=== PATIENT | male | born 1960 | race Caucasian/White ===

== ENCOUNTER 2017-06-12 21:15 | Inpatient (IN) | payer OTHER ==
[~2017-06-12] VITALS: Ht 172.7 cm; Wt 83.0 kg
[2017-06-12] MEDS ORDERED: SODIUM CHLORIDE 0.9% 1,000 ML IV ONE (23:13)
[2017-06-12 23:40] LABS: HEMATOCRIT. 39.7 % (42.0-52.0); HEMOGLOBIN. 13.4 g/dL (14.0-18.0); MEAN CORPUSCULAR HEMOGLOBIN 31.2 pg (28.0-32.0); MEAN CORPUSCULAR VOLUME 92.1 fL (80.0-94.0); MEAN PLATELET VOLUME 8.5 fl (7.4-10.4); PLATELET 228 x1000/uL (130-400); RED BLOOD CELL COUNT 4.31 mill/uL (4.7-6.1); RED CELL DISTRIBUTION WIDTH 13.6 % (11.6-14.6)
[2017-06-12 23:44] LABS: D-DIMER 0.19 mg/L FEU (<0.50); PARTIAL THROMBOPLASTIN TIME 23.4 sec (24.0-34.0); PROTHROMBIN TIME 10.8 sec
[2017-06-12 23:49] LABS: CARBON DIOXIDE 29 mEq/L (21-32); CHLORIDE 105 mEq/L (98-107); TROPONIN I < 0.02 ng/mL (0.00-0.04)
[2017-06-13 03:48] LABS: PLATELET ESTIMATE NORMAL
[2017-06-13 08:30] VITALS: BP 104/60
[2017-06-13] MEDS ORDERED: LORAZEPAM 2MG/ML CPJ IV PRN (09:15)
[2017-06-13] MEDS ORDERED: ACETAMINOPHEN 650MG SUPP PR PRN (09:15)
[2017-06-13] MEDS ORDERED: MAGNESIUM/ALUMINUM HYDROXIDE/SIMETHICONE 30ML UDC PO PRN (09:15)
[2017-06-13] MEDS ORDERED: DIPHENHYDRAMINE 50MG/ML VIAL IV PRN (09:15)
[2017-06-13] MEDS ORDERED: IPRATROPIUM/ALBUTEROL 0.5-3(2.5)MG/3ML NEB INH PRN (09:15)
[2017-06-13] MEDS ORDERED: DOCUSATE SODIUM 100MG CAPSULE PO PRN (09:15)
[2017-06-13] MEDS ORDERED: CLONIDINE 0.1MG TABLET PO PRN (09:15)
[2017-06-13] MEDS ORDERED: ONDANSETRON HCL 4MG/2ML VIAL IV PRN (09:15)
[2017-06-13] MEDS ORDERED: LORAZEPAM 0.5MG TABLET PO PRN (09:15)
[2017-06-13] MEDS ORDERED: ACETAMINOPHEN 325MG TABLET PO PRN (09:15)
[2017-06-13] MEDS ORDERED: HYDROMORPHONE HCL/PF 2MG/ML CPJ IV PRN (09:15)
[2017-06-13] MEDS ORDERED: ENOXAPARIN 40MG/0.4ML SYR SUBCUT SCH (10:00)
[2017-06-13 11:06] LABS: BASOPHILS % 0.4 % (0.0-2.0); HEMATOCRIT. 39.4 % (42.0-52.0); HEMOGLOBIN. 13.7 g/dL (14.0-18.0); LYMPHOCYTES % 13.3 % (20.0-50.0); MEAN CORPUSCULAR HEMOGLOBIN 31.8 pg (28.0-32.0); MEAN CORPUSCULAR VOLUME 91.6 fL (80.0-94.0); MEAN PLATELET VOLUME 8.6 fl (7.4-10.4); MONOCYTES % 11.4 % (2.0-8.0); NEUTROPHILS % 70.9 % (40.0-76.0); PLATELET 208 x1000/uL (130-400); RED CELL DISTRIBUTION WIDTH 13.7 % (11.6-14.6)
[2017-06-13 11:40] LABS: CARBON DIOXIDE 28 mEq/L (21-32); CHLORIDE 107 mEq/L (98-107); HDL CHOLESTEROL 58 mg/dL (40-59); LDL CHOLESTEROL 135 mg/dL (5-100)
[2017-06-13 12:00] VITALS: BP 122/96
[2017-06-13 12:42] VITALS: BP 104/60
[2017-06-13] MEDS ORDERED: SODIUM CHLORIDE 0.9% 10ML VIAL ONE (12:47)
[2017-06-13] MEDS ORDERED: IOHEXOL-350 100 ML BOTTLE ONE (12:47)
[2017-06-13] MEDS: SODIUM CHLORIDE 0.9% INJ 3ML FLUSH IVF SCH ×2 (13:36→21:26)
[2017-06-13] MEDS ORDERED: PINE BARK EXTRACT (13:40)
[2017-06-13] MEDS: IPRATROPIUM/ALBUTEROL 0.5-3(2.5)MG/3ML NEB HHN SCH ×3 (14:07→20:48)
[2017-06-13] MEDS ORDERED: POTASSIUM CHLORIDE 20MEQ TABLET SR PO SCH (14:30)
[2017-06-13] MEDS ORDERED: ATROPINE SULFATE 1MG/10ML SYR IV PRN (14:30)
[2017-06-13] MEDS ORDERED: MAGNESIUM 2 G PREMIX 50 ML IV SCH (14:30)
[2017-06-13 16:00] VITALS: BP 111/65
[2017-06-13 16:46] LABS: CREATINE KINASE MB FRACTION 0.6 ng/mL (0.5-3.6); TROPONIN I < 0.02 ng/mL (0.00-0.04)
[2017-06-13] MEDS: ASPIRIN 81MG EC TABLET PO SCH (17:36)
[2017-06-13 17:40] LABS: CLARITY URINE CLEAR (CLEAR); COLOR URINE YELLOW (YELLOW); GLUCOSE URINE NEGATIVE (NEGATIVE); KETONES URINE NEGATIVE (NEGATIVE); LEUKOCYTE ESTERASE URINE NEGATIVE (NEGATIVE); NITRITE URINE NEGATIVE (NEGATIVE); OCCULT BLOOD URINE NEGATIVE (NEGATIVE); PROTEIN URINE NEGATIVE (NEGATIVE); SPECIFIC GRAVITY URINE 1.017 (1.005-1.030); UROBILINOGEN URINE 0.2 E.U./dL (0.2-1.0)
[2017-06-13 18:00] LABS: *AMPHETAMINES SCREEN URINE NEGATIVE (NEGATIVE); *BARBITURATES SCREEN URINE NEGATIVE (NEGATIVE); *BENZODIAZEPINES SCREEN URINE NEGATIVE (NEGATIVE); *COCAINE SCREEN URINE NEGATIVE (NEGATIVE); CANNABINOID URINE SCREEN NEGATIVE (NEGATIVE); METHADONE URINE SCREEN NEGATIVE (NEGATIVE); OPIATES URINE SCREEN NEGATIVE (NEGATIVE); PHENCYCLIDINE URINE SCREEN NEGATIVE (NEGATIVE)
[2017-06-13 20:00] VITALS: BP_SYST 121; BP_SYST 99; BP_DIAS 65; BP_DIAS 72
[2017-06-13] MEDS: ATORVASTATIN CALCIUM 10MG TABLET PO SCH (21:25)
[2017-06-13 23:56] LABS: CREATINE KINASE MB FRACTION < 0.5 ng/mL (0.5-3.6); TROPONIN I < 0.02 ng/mL (0.00-0.04)
[2017-06-14] VITALS (10 sets, daily range): BP systolic 95–118; BP diastolic 49–95
[2017-06-14 05:45] LABS: BASOPHILS % 0.6 % (0.0-2.0); EOSINOPHILS % 6.5 % (0.0-5.0); HEMATOCRIT. 40.5 % (42.0-52.0); HEMOGLOBIN. 13.8 g/dL (14.0-18.0); LYMPHOCYTES % 14.1 % (20.0-50.0); MEAN CORPUSCULAR HEMOGLOBIN 31.5 pg (28.0-32.0); MEAN CORPUSCULAR VOLUME 92.7 fL (80.0-94.0); MEAN PLATELET VOLUME 9.1 fl (7.4-10.4); MONOCYTES % 11.5 % (2.0-8.0); NEUTROPHILS % 67.3 % (40.0-76.0); PLATELET 214 x1000/uL (130-400); RED BLOOD CELL COUNT 4.37 mill/uL (4.7-6.1); RED CELL DISTRIBUTION WIDTH 13.5 % (11.6-14.6)
[2017-06-14 06:35] LABS: CARBON DIOXIDE 30 mEq/L (21-32); CHLORIDE 106 mEq/L (98-107)
[2017-06-14 06:39] LABS: CREATINE KINASE 84 IU/L (39-308); CREATINE KINASE MB FRACTION < 0.5 ng/mL (0.5-3.6); TROPONIN I < 0.02 ng/mL (0.00-0.04)
[2017-06-14] MEDS: IPRATROPIUM/ALBUTEROL 0.5-3(2.5)MG/3ML NEB HHN SCH ×5 (08:00→20:38)
[2017-06-14] MEDS ORDERED: ACETAMINOPHEN 325MG TABLET PO PRN ×2 (08:45→12:15)
[2017-06-14] MEDS ORDERED: MORPHINE SULFATE 2 MG/ML CPJ (NOT FOR IM USE) IV PRN ×2 (08:45→12:15)
[2017-06-14] MEDS ORDERED: ONDANSETRON HCL 4MG/2ML VIAL IV PRN ×2 (08:45→12:15)
[2017-06-14] MEDS: ASPIRIN 81MG EC TABLET PO SCH (09:04)
[2017-06-14] MEDS ORDERED: ASPIRIN/SOD BICARB/CITRIC ACID 324MG TAB EFF ONE (11:40)
[2017-06-14] MEDS ORDERED: MIDAZOLAM HCL 2 MG/2 ML VIAL ONE (11:47)
[2017-06-14] MEDS ORDERED: FENTANYL CITRATE/PF 50MCG/ML 2ML VIAL ONE (11:47)
[2017-06-14] MEDS ORDERED: LIDOCAINE HCL 1% 20ML VIAL (Pyxis) INJ ONE (11:48)
[2017-06-14] MEDS ORDERED: IODIXANOL 320MG/ML 100 ML BOTTLE IV ONE (11:48)
[2017-06-14] MEDS ORDERED: HEPARIN SODIUM 1,000 UNIT/1ML VIAL IV ONE (11:52)
[2017-06-14] MEDS ORDERED: ATROPINE SULFATE 1MG/10ML SYR IV PRN (12:15)
[2017-06-14] MEDS ORDERED: SODIUM CHLORIDE 0.45% 1,000 ML IV ONE (12:15)
[2017-06-14] MEDS ORDERED: NITROGLYCERIN 50MCG/ML 10ML VIAL (CATH LAB) IV ONE (12:58)
[2017-06-14] MEDS ORDERED: NICARDIPINE 100MCG/ML 10ML VIAL (CATH LAB) IV ONE (12:58)
[2017-06-14] MEDS: SODIUM CHLORIDE 0.9% INJ 3ML FLUSH IVF SCH ×2 (15:12→21:58)
[2017-06-14] MEDS: DOCUSATE SODIUM 100MG CAPSULE PO SCH (19:31)
[2017-06-14] MEDS: ATORVASTATIN CALCIUM 10MG TABLET PO SCH (21:57)
[2017-06-15] VITALS: BP 99/68
[2017-06-15] MEDS: IPRATROPIUM/ALBUTEROL 0.5-3(2.5)MG/3ML NEB HHN SCH ×4 (00:49→13:42)
[2017-06-15 04:31] VITALS: BP 94/47
[2017-06-15 06:32] LABS: BASOPHILS % 0.7 % (0.0-2.0); EOSINOPHILS % 4.2 % (0.0-5.0); HEMATOCRIT. 38.2 % (42.0-52.0); HEMOGLOBIN. 13.2 g/dL (14.0-18.0); MEAN CORPUSCULAR HEMOGLOBIN 31.8 pg (28.0-32.0); MEAN CORPUSCULAR VOLUME 91.6 fL (80.0-94.0); MEAN PLATELET VOLUME 8.6 fl (7.4-10.4); MONOCYTES % 11.3 % (2.0-8.0); NEUTROPHILS % 72.8 % (40.0-76.0); PLATELET 197 x1000/uL (130-400); RED BLOOD CELL COUNT 4.17 mill/uL (4.7-6.1); RED CELL DISTRIBUTION WIDTH 13.6 % (11.6-14.6)
[2017-06-15] MEDS: SODIUM CHLORIDE 0.9% INJ 3ML FLUSH IVF SCH (06:47)
[2017-06-15 06:53] LABS: CARBON DIOXIDE 30 mEq/L (21-32); CHLORIDE 106 mEq/L (98-107)
[2017-06-15 08:00] VITALS: BP 98/55
[2017-06-15] MEDS: ASPIRIN 81MG EC TABLET PO SCH (08:58)
[2017-06-15] MEDS: DOCUSATE SODIUM 100MG CAPSULE PO SCH (08:58)
[2017-06-15 10:21] VITALS: BP 98/55
== END 2017-06-15 14:45 | disposition home or self-care (01) | DRG 287 ==
LOC: ER 22:25 → EDBEDREQ 23:21 → 6WST 06-13 05:02 → EDBEDREQ 06-13 05:17 → ENRESERV 06-13 06:53 → 6WST 06-13 14:06
PROVIDERS: ADMIT Internal Medicine Nephrology; ATTEND Internal Medicine Nephrology
PROC: B2111ZZ Fluoroscopy of Multiple Coronary Arteries using Low Osmolar Contrast (ICD-10-PCS; 2017-06-14)
PROC: B2151ZZ Fluoroscopy of Left Heart using Low Osmolar Contrast (ICD-10-PCS; 2017-06-14)
PROC: 4A023N7 Measurement of Cardiac Sampling and Pressure, Left Heart, Percutaneous Approach (ICD-10-PCS; principal; 2017-06-14 11:40)
DX: R00.1 Bradycardia, unspecified (principal); E46 Unspecified protein-calorie malnutrition; I95.89 Other hypotension; R07.9 Chest pain, unspecified; R55 Syncope and collapse; E78.5 Hyperlipidemia, unspecified; L40.9 Psoriasis, unspecified; E78.00 Pure hypercholesterolemia, unspecified; R32 Unspecified urinary incontinence; Z82.3 Family history of stroke; Z82.49 Family history of ischemic heart disease and other diseases of the circulatory system; Z83.3 Family history of diabetes mellitus; Z87.891 Personal history of nicotine dependence; Z68.27 Body mass index [BMI] 27.0-27.9, adult; Z72.89 Other problems related to lifestyle
CPT/HCPCS: 36415; 70450; 71010; 71275; 80048; 80053; 80061; 80305; 81003; 82550; 82553; 83036; 83735; 83880; 84443; 84484; 85025; 85379; 85610; 85730; 93005; 93306; 93458; 93880; 96360; 96361; 99291; A4216; C1769; C1887; C1893; J1644; J1650; J2250; J3010; J3475; J3490; J7030; J7040; J7620; Q9967